=== PATIENT | female | born 1955 | race Two or more races ===

== ENCOUNTER → 2017-07-11 | Outpatient (CLI) | payer BC ==
[2017-07-11 17:05] LABS: ALBUMIN 3.4 GM/DL (3.2-5.2); ALBUMIN/GLOBULIN RATIO 1.21 (1.00-1.93); ALKALINE PHOSPHATASE 46 U/L (45-117); ALT/SGPT 28 U/L (12-78); AMYLASE 60 U/L (25-115); ANION GAP 6 MEQ/L (8-16); AST/SGOT 20 U/L (15-37); BILIRUBIN,TOTAL 0.4 MG/DL (0.2-1.0); BLOOD UREA NITROGEN 12 MG/DL (7-18); CALCIUM LEVEL 8.6 MG/DL (8.8-10.2); CARBON DIOXIDE LEVEL 30 MEQ/L (21-32); CHLORIDE LEVEL 107 MEQ/L (98-107); CREATININE FOR GFR 0.66 MG/DL (0.55-1.02); GLOMERULAR FILTRATION RATE > 60.0 (>45); GLUCOSE, FASTING 89 MG/DL (80-110); POTASSIUM SERUM 4.2 MEQ/L (3.5-5.1); SODIUM LEVEL 143 MEQ/L (136-145); TOTAL PROTEIN 6.2 GM/DL (6.4-8.2)
[2017-07-11 17:36] LABS: MEAN CORPUSCULAR HGB CONC 32.8 g/dl (32.0-36.5); MEAN CORPUSCULAR VOLUME 97.4 fl (80.0-96.0); RED CELL DISTRIBUTION WIDTH 12.6 % (11.5-14.5); WHITE BLOOD COUNT 6.2 10^3/uL (4.0-10.0)
--- NOTE | 2017-07-11 18:40 | REP ---
REASON: Abdominal pain. PRIORS: None. FINDINGS: KUB shows the intestinal gas pattern to be nonspecific. The organ silhouettes insofar as delineated are unremarkable. There is no evidence of free intraperitoneal air. IMPRESSION: Nonspecific. Signed by Rome Gomez DO 07/14/2017 04:42 P
[2017-07-11 18:41] LABS: BANDS 2 % (< 11); EOSINOPHILS 2 % (0-5)
== END ==
LOC: M WUC 11:48
PROVIDERS: ATTEND Physician Assistant
DX: R10.84 Generalized abdominal pain (principal)

== ENCOUNTER 2018-08-12 06:12 | Day surgery (SDC) | payer BC ==
[2018-08-12] MEDS ORDERED: LR 1,000 ML IV ×2 (07:00→09:15)
[2018-08-12] MEDS ORDERED: LIDOCAINE 2% INJ 100 MG/5 ML SDV (FOR ANES.) As Ordered (07:14)
[2018-08-12] MEDS ORDERED: fentaNYL 100 MCG/2 ML INJECTION (J3010) As Ordered (07:14)
[2018-08-12] MEDS ORDERED: MIDAZOLAM INJ 2 MG/2 ML VIAL (J2250) As Ordered (07:14)
[2018-08-12] MEDS ORDERED: PROPOFOL 200 MG/20 ML VIAL As Ordered (07:14)
[2018-08-12] MEDS: CLINDAMYCIN 600 MG in APPROPRIATE DILUENT 1 EA IV (07:32)
[2018-08-12] MEDS: BUPIVACAINE HCL 0.5% 10 ML VIAL As Ordered (07:38)
[2018-08-12] MEDS: LIDOCAINE 1% SDV INJ 30 ML VIAL As Ordered (07:38)
[2018-08-12] MEDS: dexameTHASONE 4 MG/ML 1ML VIAL (J1100) As Ordered (08:23)
[2018-08-12] MEDS ORDERED: ONDANSETRON 4MG/2ML VIAL (J2405) As Ordered (09:03)
[2018-08-12] MEDS: ONDANSETRON 4MG/2ML VIAL (J2405) IV (09:09)
[2018-08-12] MEDS ORDERED: HYDROMORPHONE HCL 0.5 MG/ 0.5 ML SYRINGE (J1170 PER 1) IV (09:15)
[2018-08-12] MEDS ORDERED: fentaNYL 100 MCG/2 ML INJECTION (J3010) IV (09:15)
[2018-08-12] MEDS ORDERED: PERCOCET 5MG/325MG TAB PO (09:15)
[2018-08-12] MEDS ORDERED: METOCLOPRAMIDE INJ 10MG/2ML VIAL (J2765) As Ordered (10:23)
[2018-08-12] MEDS ORDERED: METOCLOPRAMIDE INJ 10MG/2ML VIAL (J2765) IV (10:30)
== END 2018-08-12 11:10 | disposition home or self-care (01) ==
LOC: M SDC 06:12
DX: M21.611 Bunion of right foot (principal); I48.91 Unspecified atrial fibrillation; E78.00 Pure hypercholesterolemia, unspecified; M72.2 Plantar fascial fibromatosis; G43.909 Migraine, unspecified, not intractable, without status migrainosus; L30.2 Cutaneous autosensitization; R05 Cough; Z88.0 Allergy status to penicillin; Z88.1 Allergy status to other antibiotic agents; Z88.2 Allergy status to sulfonamides; Z78.0 Asymptomatic menopausal state
CPT/HCPCS: 28296

== ENCOUNTER → 2021-06-27 | Outpatient (CLI) | payer BC ==
[~2021-06-27] MED LIST: CALC500T52 PO; D31000TA2 PO; ESTR0.1C5; HYDR-3713 PO; IBUP200T45 PO; MONT10TA10 OR; VITA-243 PO; VITA500055 PO; VITATAB73 PO
[2021-06-27 18:31] LABS: BLOOD UREA NITROGEN 23 MG/DL (7-18); CALCIUM LEVEL 9.7 MG/DL (8.8-10.2); CARBON DIOXIDE LEVEL 33 MEQ/L (21-32); CHLORIDE LEVEL 103 MEQ/L (98-107); CREATININE FOR GFR 0.83 MG/DL (0.55-1.30); GLOMERULAR FILTRATION RATE > 60.0 (>45); GLUCOSE, FASTING 85 MG/DL (70-100); POTASSIUM SERUM 4.4 MEQ/L (3.5-5.1); SODIUM LEVEL 141 MEQ/L (136-145)
--- NOTE | 2021-06-28 08:42 | ECGEPIP ---
[facility] Test Date: 2021-06-27 Pat Name: COREY HIGGINS Department: Room: - Gender: Female Administrative Project Coordinator: OLEKSANDR : 1955 Requested By: Wilfrido Hoffmann Order Number: [id number] Reading MD: Arik Fletcher Measurements Intervals [place] Rate: 54 P: 72 UT: 144 QRS: 65 QRSD: 86 T: 57 QT: 432 QTc: 409 Interpretive Statements Sinus bradycardia No prior Electronically Signed on 06-28-2021 8:42:28 EDT by Arik Fletcher
== END ==
LOC: M LAB 16:42
PROVIDERS: ATTEND Podiatrist
DX: Z01.812 Encounter for preprocedural laboratory examination (principal); M20.11 Hallux valgus (acquired), right foot; M22.41 Chondromalacia patellae, right knee; M79.671 Pain in right foot

== ENCOUNTER → 2021-07-02 | Outpatient (CLI) | payer BC ==
[~2021-07-02] MED LIST changes: -IBUP200T45 PO; +IBUP200T46 PO; -MONT10TA10 OR; +MONT10TA97 OR
== END ==
LOC: M LABSMTC 09:19
PROVIDERS: ATTEND Anesthesiology
DX: Z01.812 Encounter for preprocedural laboratory examination (principal); Z20.822 Contact with and (suspected) exposure to COVID-19

== ENCOUNTER 2021-07-06 07:03 | Day surgery (SDC) | payer BC ==
[~2021-07-06] VITALS: Ht 175.3 cm; Wt 67.6 kg
[~2021-07-06 07:03] MED LIST changes: +LIDOCAINE 1% MDV 20ML VIAL SQ PRN; +LR 1,000 ML IV ONE; +MONT10TA10 OR; -MONT10TA97 OR; +VANCOMYCIN 1000MG/20ML VIAL As Ordered ONE; +VANCOMYCIN HCL 1,000 MG, VIAL MATE ADAPTER 1 EACH in NS 250 ML IV ONE
[2021-07-06 08:14] LABS: HEMATOCRIT 45.3 % (36.0-47.0); HEMOGLOBIN 15.1 g/dl (12.0-15.5)
[2021-07-06] MEDS ORDERED: BUPIVACAINE HCL 0.5% 10ML VIAL As Ordered ONE ×2 (08:14→08:17)
[2021-07-06] MEDS ORDERED: dexameTHASONE 4 MG/ML 1ML VIAL (J1100 PER 1MG) As Ordered ONE (08:14)
[2021-07-06] MEDS ORDERED: NEOSPORIN GU IRRIG 20 ML VIAL As Ordered ONE (08:15)
[2021-07-06] MEDS ORDERED: LIDOCAINE 2% MDV 20ML VIAL As Ordered ONE (08:15)
[2021-07-06] MEDS ORDERED: GENTAMICIN SULF 80MG/2ML VIAL As Ordered ONE (08:30)
[2021-07-06] MEDS ORDERED: LIDOCAINE 2% 100MG/5ML SDV (FOR ANES.) As Ordered ONE (08:41)
[2021-07-06] MEDS ORDERED: ONDANSETRON 4MG/2ML VIAL As Ordered ONE (08:41)
[2021-07-06] MEDS ORDERED: fentaNYL 100 MCG/2 ML INJECTION (J3010) As Ordered ONE (08:41)
[2021-07-06] MEDS ORDERED: KETOROLAC 60MG 2ML VIAL As Ordered ONE (08:41)
[2021-07-06] MEDS ORDERED: MIDAZOLAM INJ 2MG/2ML VIAL (J2250 PER 1MG) As Ordered ONE (08:41)
[2021-07-06] MEDS ORDERED: DESFLURANE 240 ML INHALANT As Ordered ONE (08:41)
[2021-07-06] MEDS ORDERED: propofoL 200 MG/20 ML VIAL As Ordered ONE ×2 (08:41→10:10)
[2021-07-06] MEDS ORDERED: PHENYLephrine 500MCG 5ML (100MCG/ML) SYRINGE As Ordered ONE (09:03)
[2021-07-06] MEDS ORDERED: ePHEDrine SULFATE 25 MG/5 ML(5MG/ML) SYRINGE As Ordered ONE (09:03)
--- NOTE | 2021-07-06 11:25 | REP ---
INDICATION: post op COMPARISON: None. TECHNIQUE: Three portable views right foot. FINDINGS: There are 2 metallic screws in the distal 1st metatarsal at the site of the surgical defect. A metallic pin extends into the phalanges of the 2nd toe, another in the 3rd toe and another in the 4th toe. The osseous structures are well-aligned. There is mild inferior calcaneal spurring. There is an overlying cast which obscures underlying osseous detail. IMPRESSION: Postsurgical findings, the osseous structures are well-aligned. <Electronically signed by Milo Kapoor > 07/06/21 1126
[2021-07-06 13:25] VITALS: BP 118/56
--- NOTE | 2021-07-06 13:58 | RO ---
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 PROCEDURES PERFORMED: 1. Rotational wedge Hohmann bunionectomy with internal screw fixation, 3.0 mm x 22 mm, and a 3.0 x 24 mm right foot. 2. Distal interphalangeal joint arthroplasty with external wire fixation, 0.045 times one, right foot. 3. Distal interphalangeal joint arthroplasty with external wire fixation, 0.045 times one, 3rd toe, right foot. 4. Distal interphalangeal joint arthroplasty with external wire fixation, 0.045 times one, 4th toe, right foot. SURGEON: Dr. Guerrero Beard DPM ENGINEERING SPECIALIST: None. ANESTHESIA: Local with intravenous (IV) sedation. HEMOSTASIS: Ankle pneumatic tourniquet at 200 mmHg for 101 minutes. HARDWARE UTILIZED: An Arthrex headless 3.0 x 22 and a 3.0 x 24, right foot. DESCRIPTION OF PROCEDURE: On 07/06/2021 this 66-year-old white female was taken from her hospital room to the operating room and placed on the operating table in the supine position. Following the induction of IV sedation, local and regional anesthesia, the right lower extremity was prepped and draped in the usual aseptic manner. Attention was directed to the patient's right foot. There was noted to be a previous cicatrix at this time. This previous cicatrix was used as the skin incision, and it extended approximately 1.5 cm in a proximal direction. Incision was deepened into subcutaneous tissues, and all coursing venous tributaries were identified, underscored, clamped, cut, ligated, and electrocoagulated as necessary. Dissection was carried down, and a periosteal capsular incision was placed in the same plane as the original skin incision. A headless screw was noted. This was removed. The sesamoids were then released with a plantar sesamoidal elevator, and a lateral release was performed, releasing the fibular sesamoid. A wedge-shaped osteotomy was then performed in the distal metaphysis of the 1st metatarsal. After the wedge was constructed, it was approximately 4-5 mm. It was then rotated so that the lateral wedge was then changed to the medial surface to straighten the osteotomy. It was then transposed approximately 30% of the width of the shaft of the 1st metatarsal and fixated with two screws, a 3.0 x 22 and a 3.0 x 24 headless screw. Direct visualized revealed that the cartilage was not penetrated, and the osteotomy was noted to be stable in all three cardinal planes. The wound was flushed with copious amounts of dilute bacitracin, neomycin, and polymyxin B solution. To keep the integrity of the bone, however, the redundant cortical spike was not transected, since this was most likely transected at a prior surgery. Capsular closure was then obtained with 2-0 Monocryl in a simple interrupted-type fashion after the wound was flushed with copious amounts of dilute gentamicin solution. Subcutaneous tissues were coapted and maintained utilizing 4-0 Monocryl suture in a simple interrupted-type fashion. Skin incision was coapted and maintained utilizing 3-0 nylon in the simple interrupted and horizontal mattress-type fashion. Attention was then directed to the patient's 2nd toe, where the following procedure was performed. DISTAL INTERPHALANGEAL JOINT ARTHROPLASTY, 2ND TOE, WITH EXTERNAL WIRE FIXATION, 0.045 TIMES ONE, 2ND TOE, RIGHT FOOT: Attention was directed to the patient's 2nd toe. There was noted to be a mallet toe deformity. At this time two transverse semielliptical incisions were placed at the distal interphalangeal joint. The widest margin measured 5 mm. A transverse tenotomy and capsulotomy were then performed. The medial and lateral collateral ligaments were sharply dissected free from the middle phalanx. Utilizing a sagittal saw an osteotomy was performed through the middle phalanx. Approximately 5 mm of bone was removed. This was then removed. The wound was flushed with copious amounts of dilute bacitracin, neomycin, and polymyxin B solution. A K wire utilizing C-arm imagery was then placed through the distal phalanx into the middle and and proximal phalanx with the toe held in a straight position. The wire was then bent, and a protective ball was placed on the end of the wire. Skin closure was obtained with 3-0 Monocryl in a simple interrupted-type fashion for the extensor tendon, and the skin was coapted and maintained utilizing 3-0 nylon in a simple interrupted-type fashion. Attention was then directed to the 4th toe, where the procedure performed on the 3rd toe was now performed on the 4th toe, which was a distal interphalangeal joint arthroplasty with external wire fixation, 4th toe, right foot. Attention was then directed to the 4th toe, where the following procedure was performed. DISTAL INTERPHALANGEAL JOINT ARTHROPLASTY, 4TH TOE, WITH EXTERNAL WIRE FIXATION, 0.045 TIMES ONE, 4TH TOE, RIGHT FOOT: Attention was directed to the patient's 4th toe of the right foot, where the procedures performed on the 2nd toe was now performed on the 4th toe without variation or deletion, the only exception being that of anatomical location. Patient having apparently tolerated the procedure well was taken from the OR to the recovery room for further monitoring by the anesthesia department. Postoperative instructions given upon discharge.
== END 2021-07-06 13:38 | disposition home or self-care (01) ==
LOC: M SDC 07:03
PROVIDERS: ATTEND Podiatrist
DX: M20.11 Hallux valgus (acquired), right foot (principal); M20.41 Other hammer toe(s) (acquired), right foot; G43.909 Migraine, unspecified, not intractable, without status migrainosus; Z79.899 Other long term (current) drug therapy
CPT/HCPCS: 28285; 28296; 36415; 73630; 76000; 85014; 85018; 88300; 97116; 97530; C1713; J1100; J1580; J1885; J2250; J2370; J2405; J3010; J3370